=== PATIENT | male | born 1980 | race Asian ===

== ENCOUNTER 2021-02-27 10:06 | Emergency (ER) | payer MEDICAID ==
[~2021-02-27] VITALS: Ht 165.1 cm; Wt 77.1 kg
[2021-02-27 10:19] VITALS: BP 115/76
[2021-02-27] MEDS ORDERED: IBUP-1955 PO (10:23)
[2021-02-27] MEDS ORDERED: ALBU8.5H8 INH (10:23)
--- NOTE | 2021-02-27 11:00 | NUR ---
COVID SWABS DONE AND SENT TO LAB
--- NOTE | 2021-02-27 11:02 | NUR ---
Patient discharged to home in stable condition. Written and verbal after care instructions given. Patient verbalizes understanding of instruction.
--- NOTE | 2021-02-27 13:05 | NUR ---
+ COVID. ATTEMPTED TO CALL. NUMBER NOT IN SERVICE.
--- NOTE | 2021-03-07 13:51 | NUR ---
COVID PCR + LAB. ATTEMPTED TO CALL. NUMBER NOT IN SERVICE.
== END 2021-02-27 11:03 | disposition home or self-care (01) ==
LOC: ER 10:09
DX: U07.1 COVID-19 (principal); J06.9 Acute upper respiratory infection, unspecified; Z79.899 Other long term (current) drug therapy
CPT/HCPCS: 87426; 99283; C9803; U0003

== ENCOUNTER 2022-02-01 11:10 | Emergency (ER) | payer MEDICAID ==
[~2022-02-01] VITALS: Ht 165.1 cm; Wt 79.4 kg
[~2022-02-01 11:10] MED LIST: ALBU8.5H8 INH; IBUP-1955 PO
[2022-02-01 11:29] VITALS: BP 140/97
[2022-02-01] MEDS ORDERED: ALBU8.5H8 INH (11:57)
--- NOTE | 2022-02-01 12:08 | NUR ---
SEEN AND EVALUATED BY DR MERAZ, SWABBED FOR COVID AND INFLUENZA. SENT TO LAB. D/C HOME IN STABLE CONDITION.
== END 2022-02-01 12:13 | disposition home or self-care (01) ==
LOC: ER 11:19
DX: J06.9 Acute upper respiratory infection, unspecified (principal); Z20.822 Contact with and (suspected) exposure to COVID-19; J45.909 Unspecified asthma, uncomplicated; R03.0 Elevated blood-pressure reading, without diagnosis of hypertension
CPT/HCPCS: 99283; 87804; U0003; C9803

== ENCOUNTER 2022-07-18 13:52 | Emergency (ER) | payer MEDICAID ==
[~2022-07-18] VITALS: Ht 165.1 cm; Wt 74.8 kg
[2022-07-18 14:19] VITALS: BP 124/81
--- NOTE | 2022-07-18 14:20 | NUR ---
ELBOW PAIN X6 MONTHS
--- NOTE | 2022-07-18 14:30 | NUR ---
AT BEDSIDE FOR EVAL
[2022-07-18] MEDS ORDERED: IBUP-1955 PO (16:08)
--- NOTE | 2022-07-18 16:28 | NUR ---
Patient discharged to home in stable condition. Written and verbal after care instructions given. Patient verbalizes understanding of instruction.
== END 2022-07-18 16:28 | disposition home or self-care (01) ==
LOC: ER 13:57
DX: G89.29 Other chronic pain (principal); M25.522 Pain in left elbow; J45.909 Unspecified asthma, uncomplicated; Z79.51 Long term (current) use of inhaled steroids
CPT/HCPCS: 73080-TC

== ENCOUNTER 2022-09-20 11:32 | Emergency (ER) | payer MEDICAID ==
[~2022-09-20] VITALS: Ht 165.1 cm; Wt 77.1 kg
[2022-09-20 11:47] VITALS: BP 144/103; TEMP 98.3; O2SAT 99
[2022-09-20] MEDS ORDERED: IBUPROFEN 600 MG TABLET ONE (11:56)
[2022-09-20] MEDS ORDERED: IBUPROFEN 600 MG TABLET PO ONE (12:00)
[2022-09-20] MEDS ORDERED: KETOROLAC TROMETHAMINE INJ 30 MG/ML VIAL IV ONE (12:00)
[2022-09-20 12:06] LABS: BASOPHILS % (AUTO) 0.3 % (0.0-2.0); EOSINOPHILS # (AUTO) 0.1 K/uL (0.0-0.7); EOSINOPHILS % (AUTO) 1.2 % (0.0-6.0); HEMATOCRIT 41 % (39-51); HEMOGLOBIN 13.4 g/dL (13.5-17.5); LYMPHOCYTES # (AUTO) 2.1 K/uL (0.8-4.8); LYMPHOCYTES % (AUTO) 32.3 % (20.0-44.0); MEAN CORPUSCULAR HEMOGLOBIN 26 PG (26.0-33.0); MEAN CORPUSCULAR HGB CONC 33 g/dl (31.0-36.0); MEAN CORPUSCULAR VOLUME 80 fL (80-96); MONOCYTES # (AUTO) 0.4 K/uL (0.1-1.30); MONOCYTES % (AUTO) 5.8 % (2.0-12.0); NEUTROPHILS # (AUTO) 3.9 K/uL (1.8-8.9); NEUTROPHILS % (AUTO) 60.4 % (43.0-81.0); PLATELET COUNT (AUTO) 236 K/uL (150-450); RED BLOOD CELL COUNT(AUTO) 5.13 MIL/uL (4.5-6.0); RED CELL DISTRIBUTION WIDTH 13.7 % (11.5-15.0); WHITE BLOOD COUNT (AUTO) 6.5 K/uL (4.3-11.0)
[2022-09-20] MEDS ORDERED: KETOROLAC TROMETHAMINE INJ 30 MG/ML VIAL ONE (12:15)
[2022-09-20 12:20] LABS: CALCIUM, SERUM 9.2 mg/dL (8.5-10.1); CARBON DIOXIDE 26 mmol/L (21-32); CHLORIDE 103 mmol/L (98-107); CREATININE 1.1 mg/dL (0.6-1.3); GLUCOSE 106 mg/dL (74-106); POTASSIUM 3.8 mmol/L (3.5-5.1); SODIUM SERUM 138 mmol/L (136-145); UREA NITROGEN, BLOOD 19 mg/dL (7-18)
[2022-09-20 12:34] LABS: ALANINE AMINOTRANSFERASE 38 U/L (12-78); ALBUMIN 4.1 g/dL (3.4-5.0); ALKALINE PHOSPHATASE 83 U/L (46-116); ASPARTATE AMINOTRANSFERASE 18 U/L (15-37); BILIRUBIN,DIRECT 0.1 mg/dL (0.0-0.2); BILIRUBIN,TOTAL 0.7 mg/dL (0.2-1.0); NT-PRO BNP 30 pg/mL (0-125); TOTAL PROTEIN, SERUM 8.1 g/dL (6.4-8.2)
[2022-09-20] MEDS ORDERED: CARV25TA2 PO (12:57)
[2022-09-20] MEDS ORDERED: NIFE90TA61 PO (12:57)
[2022-09-20] MEDS ORDERED: ISOS30TA9 PO (12:57)
[2022-09-20] MEDS ORDERED: ATOR10TA PO (12:57)
[2022-09-20] MEDS ORDERED: ASPIRIN 325 MG TABLET ONE (12:58)
[2022-09-20] MEDS ORDERED: ASPIRIN 325 MG TABLET PO ONE (13:00)
[2022-09-20] MEDS ORDERED: ACETAMINOPHEN 325 MG TABLET PO PRN (15:00)
[2022-09-20] MEDS ORDERED: ONDANSETRON HCL/PF 4 MG/2 ML VIAL IVP PRN (15:00)
[2022-09-20] MEDS ORDERED: MAGNESIUM HYDROXIDE 30 ML UDC PO PRN (15:00)
[2022-09-20] MEDS ORDERED: Z GUARD REMEDY 4 OZ OINT TP PRN (15:00)
[2022-09-20] MEDS ORDERED: MAG HYDROX/AL HYDROX/SIMETH 30 ML UDC PO PRN (15:00)
[2022-09-20] MEDS ORDERED: CARVEDILOL 12.5 MG TABLET PO SCH (17:00)
[2022-09-20] MEDS ORDERED: ATORVASTATIN 10 MG TABLET PO SCH (18:00)
[2022-09-21] MEDS ORDERED: NIFEDIPINE PO SCH (09:00)
== END 2022-09-20 14:43 | disposition left against medical advice (07) ==
LOC: ER 11:47
DX: R07.9 Chest pain, unspecified (principal); J45.909 Unspecified asthma, uncomplicated; Z88.0 Allergy status to penicillin; Z91.013 Allergy to seafood
CPT/HCPCS: 99285; 96374; 71045; 93005; 85025; 80048; 80076; 36415; 84484; 83880; J1885

== ENCOUNTER 2023-01-23 05:12 | Emergency (ER) | payer MEDICAID ==
[~2023-01-23] VITALS: Ht 165.1 cm; Wt 81.6 kg
[~2023-01-23 05:12] MED LIST changes: -ALBU8.5H8 INH; +ATOR10TA PO; +CARV25TA2 PO; -IBUP-1955 PO; +ISOS30TA9 PO; +NIFE90TA61 PO
[2023-01-23] MEDS ORDERED: ACETAMINOPHEN 325 MG TABLET ONE (06:44)
[2023-01-23] MEDS ORDERED: IBUP-1955 PO (06:51)
[2023-01-23] MEDS ORDERED: ACETAMINOPHEN 325 MG TABLET PO ONE (07:00)
[2023-01-23] MEDS ORDERED: KETOROLAC TROMETHAMINE 15 MG/ML VIAL IM ONE (07:00)
[2023-01-23 07:04] VITALS: BP 129/89; TEMP 98; O2SAT 99
== END 2023-01-23 07:04 | disposition home or self-care (01) ==
LOC: ER 05:12
DX: J02.9 Acute pharyngitis, unspecified (principal); R51.9 Headache, unspecified; I10 Essential (primary) hypertension; E78.5 Hyperlipidemia, unspecified; J45.909 Unspecified asthma, uncomplicated; Z88.0 Allergy status to penicillin; Z91.013 Allergy to seafood; Z20.822 Contact with and (suspected) exposure to COVID-19
CPT/HCPCS: 99283; 87426; 96372; 87804 ×2; J1885; C9803

== ENCOUNTER 2024-12-08 12:30 | Emergency (ER) | payer MEDICAID ==
[~2024-12-08] VITALS: Ht 165.1 cm; Wt 72.6 kg
[~2024-12-08 12:30] MED LIST changes: +IBUP-1955 PO
[2024-12-08] MEDS ORDERED: GADOTERATE MEGLUMINE 10 MMOL/20 ML VIAL IV ONE (12:39)
[2024-12-08] MEDS ORDERED: IBUP-1490 PO (16:47)
[2024-12-08] MEDS ORDERED: KETOROLAC TROMETHAMINE 15 MG/ML VIAL ONE (16:53)
[2024-12-08] MEDS: KETOROLAC TROMETHAMINE 15 MG/ML VIAL IV ONE (16:55)
[2024-12-08 17:00] VITALS: BP 126/78; TEMP 98.1; O2SAT 98
== END 2024-12-08 17:00 | disposition home or self-care (01) ==
LOC: ER 12:38
DX: S02.2XXA Fracture of nasal bones, initial encounter for closed fracture (principal); I63.81 Other cerebral infarction due to occlusion or stenosis of small artery; Z91.013 Allergy to seafood; Z88.0 Allergy status to penicillin; Z86.73 Personal history of transient ischemic attack (TIA), and cerebral infarction without residual deficits; Z79.899 Other long term (current) drug therapy; X58.XXXA Exposure to other specified factors, initial encounter; Y93.89 Activity, other specified; Y92.89 Other specified places as the place of occurrence of the external cause; Y99.8 Other external cause status
CPT/HCPCS: 99285; 70553; 70450; 96374; 70486; J1885; A9575